=== PATIENT | male | born 1940 | race Caucasian/White ===

== ENCOUNTER 2021-12-25 16:05 | Emergency (ER) | payer OTHER ==
[2021-12-25 16:26] VITALS: BP 145/81; PULSE 73; TEMP 97.8; BMI 46.5
[2021-12-25] MEDS ORDERED: DIPHTH,PERTUSS(ACELL),TET 0.5 ML DISP.SYRIN IM ONE ×2 (17:47→18:04)
[2021-12-25] MEDS ORDERED: ACETAMINOPHEN 325 MG TABLET (FP) PO ONE (17:47)
[2021-12-25] MEDS ORDERED: ACETAMINOPHEN 325 MG TABLET (FP) ONE (18:03)
== END 2021-12-25 19:43 | disposition home or self-care (01) ==
LOC: JER 16:05
PROC: 3E0234Z Introduction of Serum, Toxoid and Vaccine into Muscle, Percutaneous Approach (ICD-10-PCS; principal; 2021-12-25)
DX: S01.81XA Laceration without foreign body of other part of head, initial encounter (principal); S09.90XA Unspecified injury of head, initial encounter; S80.01XA Contusion of right knee, initial encounter; W01.198A Fall on same level from slipping, tripping and stumbling with subsequent striking against other object, initial encounter
CPT/HCPCS: 70450-TC; 72125-TC; 73562-TC-RT-FY; 90471; 90715; 93005; 93010; 99285-25

== ENCOUNTER 2024-10-12 16:28 | Inpatient (IN) | payer OTHER ==
[2024-10-12 17:52] LABS: EPI CELLS 3 /uL (0-25.1); HYALINE CASTS 0 /uL (0-3.1); URINE APPEARANCE CLOUDY; URINE BACTERIA >9,000 /uL (0-1359); URINE BILIRUBIN NEGATIVE (NEGATIVE); URINE COLOR YELLOW; URINE GLUCOSE (UA) NEGATIVE (NEGATIVE); URINE KETONE NEGATIVE (NEGATIVE); URINE LEUK ESTERASE 2+ (NEGATIVE); URINE NITRITE POSITIVE (NEGATIVE); URINE PROTEIN TRACE (NEGATIVE); URINE RBC 213 /uL (0-23.9); URINE WBC 360 /uL (0-25.8)
[2024-10-12] MEDS ORDERED: ACETAMINOPHEN INJECTION 100 ML ONE (17:53)
[2024-10-12] MEDS: ACETAMINOPHEN 1000 MG/100 ML BAG IVPB ONE (18:13)
[2024-10-12] MEDS ORDERED: CEFTRIAXONE 1 G/50 ML PREMIX 50 ML IVPB ONE (18:15)
[2024-10-12 18:20] LABS: HEMATOCRIT 41.2 % (35.4-49); HEMOGLOBIN 13.4 GM/dL (11.7-16.9); MCH 29.5 pg (25.7-33.7); MCHC 32.6 g/dl (32.0-35.9); MEAN CELL VOLUME 90.6 fl (80-96); MEAN PLT VOLUME 7.9 fl (7.5-11.1); PLATELET COUNT 154 10^3/uL (134-434); RBC 4.55 M/mm3 (4.00-5.60); RDW 15.1 % (11.9-15.9); WHITE BLOOD COUNT 22.2 K/mm3 (4.0-10.0)
[2024-10-12] MEDS: CEFTRIAXONE 1,000 MG in DEXTROSE 5%-WATER - 50 ML IVPB ONE (18:21)
[2024-10-12 18:38] LABS: ANISOCYTOSIS 1+; MACROCYTOSIS 0; OVALOCYTE 1+
[2024-10-12] MEDS: SODIUM CHLORIDE 0.9% 500 ML INFUS.BAG IV ONE (18:41)
[2024-10-12 18:45] LABS: POTASSIUM 5.1 mmol/L (3.5-5.1)
[2024-10-12 18:47] LABS: CALCIUM 9.4 mg/dL (8.5-10.1)
[2024-10-12 18:48] LABS: ALBUMIN 3.6 g/dl (3.4-5.0); BLOOD UREA NITROGEN 30.6 mg/dL (7-18)
[2024-10-12 18:51] LABS: CREATININE 1.6 mg/dL (0.55-1.3)
[2024-10-12 18:52] LABS: BILIRUBIN,TOTAL 1.1 mg/dL (0.2-1)
[2024-10-12 18:53] LABS: TOT PROT 7.1 g/dl (6.4-8.2)
[2024-10-12] MEDS ORDERED: ACETAMINOPHEN 325 MG TABLET (FP) ONE (21:44)
[2024-10-12] MEDS: ACETAMINOPHEN 325 MG TABLET (FP) PO ONE (22:13)
[2024-10-12] MEDS: LACTATED RINGERS SOLUTION 1000 ML INFUS.BAG IV ONE (22:13)
[2024-10-12] MEDS ORDERED: PIPERACILLIN/TAZOB 4.5 GM 4.5 GM/100 ML BAG IVPB ONE (22:57)
[2024-10-12] MEDS: PIPERACILLIN/TAZOB 4.5 GM 4.5 GM in DEXTROSE 5%-WATER 100 ML IVPB ONE (23:24)
[2024-10-12] MEDS ORDERED: KETOROLAC TROMETHAMINE 15 MG/ML VIAL ONE (23:58)
[2024-10-12] MEDS ORDERED: AZITHROMYCIN IVPB 500 MG/250 ML BAG IVPB ONE (23:58)
[2024-10-13] MEDS: KETOROLAC TROMETHAMINE 15 MG/ML VIAL IVPUSH ONE ×2 (00:07→00:20)
[2024-10-13] MEDS: AZITHROMYCIN IVPB 500 MG in DEXTROSE 5%-WATER - 250 ML IVPB ONE (00:07)
[2024-10-13] MEDS: SODIUM CHLORIDE 0.9% 500 ML INFUS.BAG IV ONE (00:07)
[2024-10-13 00:43] LABS: LACTIC ACID 2.3 mmol/L (0.4-2.0)
[2024-10-13] MEDS: SODIUM CHLORIDE 500 ML IV STA (01:58)
[2024-10-13] MEDS ORDERED: VANCOMYCIN 1 GM PREMIX (F) 1 GM/200 ML BAG IVPB ONE (02:30)
[2024-10-13] MEDS ORDERED: NOREPINEPHRINE BITARTRATE 4 MG/4 ML ML IV ONE (02:43)
[2024-10-13] MEDS: NOREPINEPHRINE BITARTRATE 4,000 MCG in DEXTROSE 5%-WATER - 496 ML IV SCH (03:10)
[2024-10-13] MEDS: SODIUM CHLORIDE 1,000 ML IV SCH ×2 (03:10→14:14)
[2024-10-13] MEDS: VANCOMYCIN/WATER FOR INJ (PEG) 1 GM/200 ML BAG IVPB ONE (03:53)
[2024-10-13] MEDS: PIPERACILLIN/TAZOB 4.5 GM 4.5 GM in DEXTROSE 5%-WATER 100 ML IVPB SCH (05:26)
[2024-10-13 07:32] LABS: HEMATOCRIT 35.9 % (35.4-49); HEMOGLOBIN 11.9 GM/dL (11.7-16.9); MCH 30.2 pg (25.7-33.7); MCHC 33.3 g/dl (32.0-35.9); MEAN CELL VOLUME 90.7 fl (80-96); MEAN PLT VOLUME 8.1 fl (7.5-11.1); PLATELET COUNT 105 10^3/uL (134-434); RBC 3.95 M/mm3 (4.00-5.60); RDW 14.9 % (11.9-15.9); WHITE BLOOD COUNT 29.7 K/mm3 (4.0-10.0)
[2024-10-13 08:07] LABS: POTASSIUM 4.3 mmol/L (3.5-5.1)
[2024-10-13 08:09] LABS: BLOOD UREA NITROGEN 27.6 mg/dL (7-18); MAGNESIUM 1.4 mg/dL (1.8-2.4)
[2024-10-13 08:10] LABS: ALBUMIN 2.8 g/dl (3.4-5.0)
[2024-10-13 08:12] LABS: CREATININE 1.5 mg/dL (0.55-1.3)
[2024-10-13 08:13] LABS: PHOSPHOROUS 3.9 mg/dL (2.5-4.9)
[2024-10-13 08:14] LABS: BILIRUBIN,TOTAL 1.2 mg/dL (0.2-1); TOT PROT 5.8 g/dl (6.4-8.2)
[2024-10-13 08:58] LABS: BILIRUBIN,DIRECT 0.6 mg/dL (0.0-0.2)
[2024-10-13] MEDS ORDERED: VANCOMYCIN 1,000 MG in DEXTROSE 5%-WATER - 250 ML IVPB SCH (10:00)
[2024-10-13] MEDS ORDERED: MUPIROCIN 2% TOPICAL OINTMENT FOR DECOLONIZATION NS SCH (10:00)
[2024-10-13 10:21] LABS: ANISOCYTOSIS 0; HELMET CELLS 0; HOWELL-JOLLY BODIES 0; MACROCYTOSIS 0; OVALOCYTE 0; ROULEAU 0; SICKELED CELLS 0; TARGET CELLS 0; TEAR DROP CELLS 0; TOXIC GRANULATION 0
[2024-10-13] MEDS: PIPERACILLIN/TAZOB 4.5 GM 4.5 GM/100 ML BAG IVPB SCH (10:49)
[2024-10-13] MEDS: MAGNESIUM 2GM/50ML STERILE WATER IVPB IVPB ONE (10:49)
[2024-10-13] MEDS: MUPIROCIN 2% TOPICAL OINTMENT FOR DECOLONIZATION NS SCH (10:53)
[2024-10-13] MEDS: HEPARIN NA (PORCINE) 5,000 UNITS/ML 1ML VIAL SQ SCH (14:14)
[2024-10-13] MEDS: PIPERACILLIN/TAZOB 3.375 GM 3.375 GM in DEXTROSE 5%-WATER - 50 ML IVPB SCH (17:24)
[2024-10-13] MEDS: CHLORHEXIDINE GLUCONATE 4% CLEANSER FOR DECOLONIZATION TP SCH (21:18)
[2024-10-13] MEDS ORDERED: CHLORHEXIDINE GLUCONATE 4% CLEANSER FOR DECOLONIZATION TP SCH (22:00)
[2024-10-13] MEDS: INSULIN ASPART SLIDING SCALE (NOVOLOG) 1 VIAL SQ SCH (22:32)
[2024-10-14] MEDS ORDERED: VANCOMYCIN/WATER FOR INJ (PEG) 1,000 MG/200 ML BAG IVPB SCH (02:00)
[2024-10-14 07:14] LABS: BASO % 0.4 % (0-2.0); EOS % 7.7 % (0-4.5); HEMATOCRIT 36.2 % (35.4-49); HEMOGLOBIN 11.8 GM/dL (11.7-16.9); LYMPH % 8.1 % (8-40); MCH 29.8 pg (25.7-33.7); MCHC 32.6 g/dl (32.0-35.9); MEAN CELL VOLUME 91.2 fl (80-96); MONO % 8.2 % (3.8-10.2); NEUT % 75.6 % (42.8-82.8); PLATELET COUNT 103 10^3/uL (134-434); RBC 3.97 M/mm3 (4.00-5.60); RDW 15.1 % (11.9-15.9); WHITE BLOOD COUNT 20.5 K/mm3 (4.0-10.0)
[2024-10-14 07:20] LABS: POTASSIUM 4.3 mmol/L (3.5-5.1)
[2024-10-14 07:30] LABS: CALCIUM 8.2 mg/dL (8.5-10.1)
[2024-10-14 07:31] LABS: ALBUMIN 2.6 g/dl (3.4-5.0); MAGNESIUM 2.1 mg/dL (1.8-2.4)
[2024-10-14 07:34] LABS: CREATININE 1.3 mg/dL (0.55-1.3); PHOSPHOROUS 3.3 mg/dL (2.5-4.9)
[2024-10-14 07:35] LABS: BILIRUBIN,TOTAL 0.7 mg/dL (0.2-1); TOT PROT 5.4 g/dl (6.4-8.2)
[2024-10-14] MEDS: TAMSULOSIN HCL 0.4 MG CAP PO SCH (08:44)
[2024-10-14] MEDS: ROSUVASTATIN CA 20 MG TABLET PO ONE (08:44)
[2024-10-14 09:10] LABS: ANISOCYTOSIS 0; MACROCYTOSIS 0; OVALOCYTE 1+
[2024-10-14] MEDS: SODIUM CHLORIDE 1,000 ML IV SCH (09:10)
[2024-10-14] MEDS: ASPIRIN COATED 81 MG TABLET.EC PO SCH (09:10)
[2024-10-14] MEDS: PANTOPRAZOLE 40 MG TABLET PO SCH (09:10)
[2024-10-14] MEDS: MIDODRINE HCL 5 MG TABLET PO SCH (10:46)
[2024-10-14] MEDS: LACTOBACILLUS ACIDOPHILUS 1 TABLET PO SCH (15:36)
[2024-10-14 15:40] VITALS: BMI 32.0
[2024-10-15] MEDS: PIPERACILLIN/TAZOB 4.5 GM 4.5 GM in DEXTROSE 5%-WATER 100 ML IVPB SCH (08:18)
[2024-10-15 08:23] LABS: INR 0.91 (0.83-1.09); PROTHROMBIN TIME (PATIENT) 10.3 SEC (9.7-13.0)
[2024-10-15 09:38] LABS: BASO % 0.6 % (0-2.0); EOS % 14.2 % (0-4.5); HEMATOCRIT 35.3 % (35.4-49); HEMOGLOBIN 11.3 GM/dL (11.7-16.9); LYMPH % 8.8 % (8-40); MCH 29.1 pg (25.7-33.7); MCHC 31.9 g/dl (32.0-35.9); MEAN CELL VOLUME 91.1 fl (80-96); MEAN PLT VOLUME 8.5 fl (7.5-11.1); MONO % 8.3 % (3.8-10.2); NEUT % 68.1 % (42.8-82.8); PLATELET COUNT 110 10^3/uL (134-434); RBC 3.87 M/mm3 (4.00-5.60); RDW 15.3 % (11.9-15.9); WHITE BLOOD COUNT 14.4 K/mm3 (4.0-10.0)
[2024-10-15 09:42] LABS: POTASSIUM 4.5 mmol/L (3.5-5.1)
[2024-10-15 09:44] LABS: CALCIUM 8.4 mg/dL (8.5-10.1)
[2024-10-15 09:45] LABS: ALBUMIN 2.5 g/dl (3.4-5.0)
[2024-10-15 09:48] LABS: CREATININE 1.4 mg/dL (0.55-1.3)
[2024-10-15 09:49] LABS: BILIRUBIN,TOTAL 0.5 mg/dL (0.2-1); TOT PROT 5.3 g/dl (6.4-8.2)
[2024-10-15] MEDS: ROSUVASTATIN CA 20 MG TABLET PO SCH (21:36)
[2024-10-16] MEDS: CEFTRIAXONE 1 G/50 ML PREMIX 50 ML IVPB SCH (10:04)
[2024-10-16] MEDS: ACETAMINOPHEN 325 MG TABLET (FP) PO PRN (10:04)
[2024-10-16 11:09] LABS: BASO % 0.5 % (0-2.0); EOS % 15.9 % (0-4.5); HEMATOCRIT 35.3 % (35.4-49); HEMOGLOBIN 11.7 GM/dL (11.7-16.9); MCH 29.6 pg (25.7-33.7); MCHC 33.1 g/dl (32.0-35.9); MEAN CELL VOLUME 89.3 fl (80-96); MEAN PLT VOLUME 7.5 fl (7.5-11.1); MONO % 5.1 % (3.8-10.2); NEUT % 71.5 % (42.8-82.8); PLATELET COUNT 120 10^3/uL (134-434); RBC 3.95 M/mm3 (4.00-5.60); RDW 14.9 % (11.9-15.9); WHITE BLOOD COUNT 11.5 K/mm3 (4.0-10.0)
[2024-10-16] MEDS: COLCHICINE 0.6 MG TAB PO SCH (11:31)
[2024-10-16 12:05] LABS: POTASSIUM 4.7 mmol/L (3.5-5.1)
[2024-10-16 12:07] LABS: ALBUMIN 2.7 g/dl (3.4-5.0); CALCIUM 8.7 mg/dL (8.5-10.1)
[2024-10-16 12:10] LABS: CREATININE 1.2 mg/dL (0.55-1.3); URIC ACID 3.4 mg/dL (2.6-7.2)
[2024-10-16 12:12] LABS: BILIRUBIN,TOTAL 0.6 mg/dL (0.2-1); TOT PROT 5.5 g/dl (6.4-8.2)
[2024-10-17 07:05] VITALS: RESP 14
[2024-10-17 13:49] VITALS: BP 136/70; PULSE 73; TEMP 97.7
== END 2024-10-17 15:15 | disposition home or self-care (01) | DRG 871 ==
LOC: JER 16:28 → JERBED 21:30 → OBSVTOIN 21:30 → JICU 10-13 02:39 → J2W 10-16 22:09
PROVIDERS: ADMIT Internal Medicine; ATTEND Internal Medicine
DX: A41.50 Gram-negative sepsis, unspecified (principal); I21.19 ST elevation (STEMI) myocardial infarction involving other coronary artery of inferior wall; R65.21 Severe sepsis with septic shock; N12 Tubulo-interstitial nephritis, not specified as acute or chronic; E87.20 Acidosis, unspecified; N17.9 Acute kidney failure, unspecified; N39.0 Urinary tract infection, site not specified; I24.89 Other forms of acute ischemic heart disease; I10 Essential (primary) hypertension; E78.5 Hyperlipidemia, unspecified; E11.9 Type 2 diabetes mellitus without complications; K74.60 Unspecified cirrhosis of liver; K80.20 Calculus of gallbladder without cholecystitis without obstruction
CPT/HCPCS: 0241U-QW; 36415; 71045-TC-FY; 74176-TC; 76705-TC; 80053; 81003; 82248; 82550; 82553; 82962; 82977; 83036; 83516; 83605; 83735; 84100; 84484; 84550; 85025; 85610; 86038; 86704; 86708; 86803; 87040; 87086; 87186; 87340; 87481; 87517; 93005; 93010; 93306-TC; 93970-TC; 97116-GP; 97162-GP; 99291; J0131; J1644